=== PATIENT | male | born 1950 | race Hispanic/Latino ===

== ENCOUNTER → 2017-05-06 | Outpatient (CLI) | payer OTHER, MEDICARE ==
[~2017-05-06] MED LIST: AMLO10TA2 PO; ASPI-1012 PO; ESOM20CA31 PO; ESOM40CA54 PO; GLIP1TAB6 PO; GLYB1TAB3 PO; HYDR-309 PO; HYDR25TA PO; INSU100I21 SQ; LEVO200T5 PO; LEVO500T89 PO; LOSA100T29 PO; METO200T PO; TRAM50TA4 PO
== END | disposition home or self-care (01) ==
LOC: OIH 13:01
PROVIDERS: ATTEND Family Medicine
DX: M47.896 Other spondylosis, lumbar region (principal)
CPT/HCPCS: 72100

== ENCOUNTER → 2017-06-19 | Outpatient (CLI) | payer OTHER, MEDICARE ==
[~2017-06-19] MED LIST changes: +REGADENOSON 0.4 MG/5 ML PF SYG IVP SCH
== END | disposition home or self-care (01) ==
LOC: RAH 08:43
PROVIDERS: ATTEND Family Medicine
DX: Z01.818 Encounter for other preprocedural examination (principal); R94.31 Abnormal electrocardiogram [ECG] [EKG]
CPT/HCPCS: 78452; 93017; 96374; A9500 ×2; J2785

== ENCOUNTER 2017-06-25 16:00 | Inpatient (IN) | payer OTHER, MEDICARE ==
[~2017-06-25] VITALS: Ht 177.8 cm; Wt 94.3 kg
[2017-06-25 15:50] VITALS: BP 142/66
[~2017-06-25 16:00] MED LIST changes: -ASPI-1012 PO; -ESOM20CA31 PO; -ESOM40CA54 PO; -GLIP1TAB6 PO; -GLYB1TAB3 PO; -HYDR-309 PO; -HYDR25TA PO; -LEVO500T89 PO; -REGADENOSON 0.4 MG/5 ML PF SYG IVP SCH; -TRAM50TA4 PO
[2017-06-25 16:16] LABS: APPEARANCE,URINE Clear (CLEAR); BILIRUBIN,URINE Negative (NEGATIVE); COLOR,URINE Yellow (YELLOW); GLUCOSE, URINE (UA) Negative (NEGATIVE); KETONES,URINE Trace mg/dL (NEGATIVE); LEUKOCYTE ESTERASE ,URINE Negative (NEGATIVE); NITRATE,URINE Negative (NEGATIVE); OCCULT BLOOD,URINE Negative (NEGATIVE); PROTEIN,URINE POS 1+ (NEGATIVE)
[2017-06-25 16:26] LABS: BACTERIA,URINE Rare /HPF (None Seen); RBC,URINE 0-1 /HPF (0-1); WBC,URINE 0-1 /HPF (0-1)
[2017-06-25 16:27] LABS: HYALINE CASTS, URINE 0-1 /LPF (0-1 /LPF)
[2017-06-25] MEDS ORDERED: GLIP1TAB6 PO (16:38)
[2017-06-25] MEDS ORDERED: HYDR25TA PO (16:38)
[2017-06-25] MEDS ORDERED: ESOM40CA54 PO (16:38)
[2017-06-25 16:57] LABS: BASOPHILS % (AUTO) 0.9 % (0.0-5.0); HEMATOCRIT 39.6 % (42-54); LYMPHOCYTES % (AUTO) 24.5 % (21.0-51.0); MEAN CORPUSCULAR HEMOGLOBIN 30.4 pg (27.0-33.0); MEAN CORPUSCULAR VOLUME 86.9 fL (79-99); MONOCYTES % (AUTO) 7.8 % (3.0-13.0); NEUTROPHILS % (AUTO) 64.8 % (40.0-77.0); NUCLEATED RED BLOOD CELLS 0.1 % (0.0-0.19); PLATELET COUNT (AUTO) 463 K/uL (130-400); RED BLOOD CELL COUNT(AUTO) 4.55 MIL/uL (4.50-6.20); RED CELL DISTRIBUTION WIDTH 15.2 % (11.0-15.5); WHITE BLOOD COUNT (AUTO) 11.1 K/uL (4.8-10.8)
[2017-06-26] VITALS (27 sets, daily range): BP systolic 120–167; BP diastolic 53–91
[2017-06-26] MEDS ORDERED: SODIUM CHLORIDE 0.9% 1000ML 1,000 ML IV ONE (07:14)
[2017-06-26] MEDS ORDERED: WATER FOR INJECTION,STERILE 20 ML VIAL IJ ONE (08:00)
[2017-06-26] MEDS ORDERED: ONDANSETRON HCL 4 MG/2 ML VIAL ONE (08:28)
[2017-06-26] MEDS ORDERED: PROPOFOL 10 MG/ML 20ML VIAL IV ONE (08:28)
[2017-06-26] MEDS ORDERED: GLYCOPYRROLATE 0.2 MG/ML 5 ML VIAL ONE ×2 (08:28→10:43)
[2017-06-26] MEDS ORDERED: LIDOCAINE PF 2% 5ML ABBOJECT ONE (08:28)
[2017-06-26] MEDS ORDERED: MIDAZOLAM HCL 1 MG/ML 2ML VIAL ONE (08:28)
[2017-06-26] MEDS ORDERED: DEXAMETHASONE SOD PHOSPHATE 10MG/ML 1ML VIAL ONE (08:28)
[2017-06-26] MEDS ORDERED: FENTANYL CITRATE PF 50 MCG/1 ML 2ML VIAL ONE ×3 (08:29→10:44)
[2017-06-26] MEDS ORDERED: ROPIVACAINE 0.5% 5MG/ML 30ML IJ ONE (08:31)
[2017-06-26] MEDS ORDERED: EPINEPHRINE 1 MG/ML AMPULE ONE (08:39)
[2017-06-26] MEDS ORDERED: CEFAZOLIN SODIUM 1 GM VIAL ONE (08:39)
[2017-06-26] MEDS ORDERED: TRANEXAMIC ACID 1000MG/10ML IV ONE (08:39)
[2017-06-26] MEDS ORDERED: BUPIVACAINE/PF 0.25% 30ML VIAL IJ ONE (08:39)
[2017-06-26] MEDS: CEFAZOLIN SODIUM 1 GM VIAL IVP ONE ×2 (08:40→08:49)
[2017-06-26] MEDS ORDERED: EPHEDRINE SULFATE 50 MG/ML AMPULE ONE (09:01)
[2017-06-26] MEDS ORDERED: NEOSTIGMINE METHYLSULFATE 1MG/ML IV ONE (10:43)
[2017-06-26] MEDS ORDERED: TEMAZEPAM 15 MG CAPSULE PO PRN (11:00)
[2017-06-26] MEDS ORDERED: ACETAMINOPHEN EXTRA STRENGTH 500 MG TABLET PO PRN (11:00)
[2017-06-26] MEDS ORDERED: POTASSIUM CHLORIDE 20MEQ/100ML 100 ML IV PRN (11:00)
[2017-06-26] MEDS ORDERED: DiphenhydrAMINE HCL 50 MG/ML VIAL IVP PRN (11:00)
[2017-06-26] MEDS ORDERED: POTASSIUM CHLORIDE 10% ELIXIR 20 MEQ/15 ML UDCUP PO PRN (11:00)
[2017-06-26] MEDS ORDERED: TRAMADOL HCL 50 MG TABLET PO PRN (11:00)
[2017-06-26] MEDS ORDERED: FERROUS FUMARATE 324 MG TABLET PO PRN (11:00)
[2017-06-26] MEDS ORDERED: CALCIUM CARBONATE 500 MG TABLET PO PRN (11:00)
[2017-06-26] MEDS ORDERED: POTASSIUM CHLORIDE 20 MEQ ERTAB PO PRN (11:00)
[2017-06-26] MEDS ORDERED: LIDOCAINE HCL-MPF 1% 2ML VIAL IVP PRN (11:00)
[2017-06-26] MEDS ORDERED: OXYCODONE HCL 5 MG TAB PO PRN (11:00)
[2017-06-26] MEDS ORDERED: ONDANSETRON HCL 4 MG/2 ML VIAL IVP PRN (11:00)
[2017-06-26] MEDS ORDERED: MEPERIDINE-PF 25 MG/ML SYG ONE ×2 (11:37→11:49)
[2017-06-26] MEDS: OXYCODONE HCL 5 MG TAB PO PRN ×3 (12:38→21:16)
[2017-06-26] MEDS: ACETAMINOPHEN EXTRA STRENGTH 500 MG TABLET PO SCH ×2 (12:39→18:57)
[2017-06-26] MEDS: INSULIN HUMULIN R 100 UNIT/ML 3ML SQ SCH ×3 (12:48→20:35)
[2017-06-26] MEDS: SODIUM CHLORIDE 0.9% 1000ML 1,000 ML IV SCH ×2 (12:49→20:31)
[2017-06-26] MEDS ORDERED: CEFAZOLIN 2GM / 50 ML 50 ML IV SCH (16:00)
[2017-06-26] MEDS: CEFAZOLIN SODIUM 1 GM VIAL IVP SCH ×2 (16:03→23:28)
[2017-06-26] MEDS: ASPIRIN 325 MG TABLET PO SCH (20:31)
[2017-06-26] MEDS: CELECOXIB 200 MG CAP PO SCH (20:32)
[2017-06-26] MEDS: GLIPIZIDE 5 MG TABLET PO SCH (20:32)
[2017-06-26] MEDS: PREGABALIN 25 MG CAP PO SCH (20:32)
[2017-06-26] MEDS: METFORMIN HCL 500 MG TABLET PO SCH (20:32)
[2017-06-26] MEDS: METOPROLOL TARTRATE 50 MG TAB PO SCH (20:34)
[2017-06-27] MEDS: ACETAMINOPHEN EXTRA STRENGTH 500 MG TABLET PO SCH ×3 (03:18→19:54)
[2017-06-27] MEDS: SODIUM CHLORIDE 0.9% 1000ML 1,000 ML IV SCH (04:39)
[2017-06-27] MEDS: PANTOPRAZOLE SODIUM 40 MG TABLET.DR PO SCH (04:44)
[2017-06-27] MEDS ORDERED: LEVOTHYROXINE 100 MCG TABLET ONE (04:45)
[2017-06-27] MEDS: LEVOTHYROXINE 100 MCG TABLET PO SCH (04:46)
[2017-06-27 04:54] VITALS: BP 135/64
[2017-06-27 05:48] LABS: BASOPHILS % (AUTO) 0.5 % (0.0-5.0); EOSINOPHILS % (AUTO) 0.6 % (0.0-8.0); HEMATOCRIT 34.3 % (42-54); LYMPHOCYTES % (AUTO) 15.9 % (21.0-51.0); MEAN CORPUSCULAR HEMOGLOBIN 31.1 pg (27.0-33.0); MEAN CORPUSCULAR HGB CONC 35.6 g/dL (32.0-36.0); MEAN CORPUSCULAR VOLUME 87.4 fL (79-99); MONOCYTES % (AUTO) 10.9 % (3.0-13.0); NEUTROPHILS % (AUTO) 72.1 % (40.0-77.0); PLATELET COUNT (AUTO) 416 K/uL (130-400); RED BLOOD CELL COUNT(AUTO) 3.93 MIL/uL (4.50-6.20); RED CELL DISTRIBUTION WIDTH 15.5 % (11.0-15.5)
[2017-06-27] MEDS: INSULIN HUMULIN R 100 UNIT/ML 3ML SQ SCH ×4 (05:54→21:00)
[2017-06-27 06:03] LABS: ALBUMIN 3.1 g/dL (3.5-5.0); BILIRUBIN,TOTAL 4.8 mg/dL (0.2-1.0); CREATININE 1.5 mg/dL (0.5-1.5); TOTAL PROTEIN, SERUM 6.4 g/dL (6.0-8.3)
[2017-06-27 08:22] VITALS: BP 119/54
[2017-06-27] MEDS: HYDROCHLOROTHIAZIDE 25 MG TABLET PO SCH (09:03)
[2017-06-27] MEDS: LOSARTAN 100 MG TABLET PO SCH (09:03)
[2017-06-27] MEDS: CELECOXIB 200 MG CAP PO SCH ×2 (09:03→19:55)
[2017-06-27] MEDS: POLYETHYLENE GLYCOL 3350 17 GM POWD.PACK PO SCH (09:06)
[2017-06-27] MEDS: GLIPIZIDE 5 MG TABLET PO SCH ×2 (09:07→19:55)
[2017-06-27] MEDS: PREGABALIN 25 MG CAP PO SCH ×2 (09:07→19:55)
[2017-06-27] MEDS: TAMSULOSIN HCL 0.4 MG CAP.ER.24H PO SCH (09:07)
[2017-06-27] MEDS: METFORMIN HCL 500 MG TABLET PO SCH ×2 (09:08→19:55)
[2017-06-27] MEDS: AMLODIPINE BESYLATE 5 MG TAB PO SCH (09:08)
[2017-06-27] MEDS: ASPIRIN 325 MG TABLET PO SCH ×2 (09:08→19:55)
[2017-06-27] MEDS: METOPROLOL TARTRATE 50 MG TAB PO SCH ×2 (09:08→19:55)
[2017-06-27] MEDS: OXYCODONE HCL 5 MG TAB PO PRN (09:10)
[2017-06-27 11:38] VITALS: BP 139/59
[2017-06-27] MEDS ORDERED: INSULIN GLARGINE 100 UNITS/ML 10 ML VIAL SQ SCH (14:00)
[2017-06-27 16:15] VITALS: BP 137/64
[2017-06-27] MEDS ORDERED: ASPI-1012 PO (18:11)
[2017-06-27] MEDS ORDERED: HYDR-309 PO (18:11)
[2017-06-27 23:00] VITALS: BP 125/57
[2017-06-28 03:00] VITALS: BP 152/60
[2017-06-28] MEDS: ACETAMINOPHEN EXTRA STRENGTH 500 MG TABLET PO SCH (03:32)
[2017-06-28] MEDS: LEVOTHYROXINE 100 MCG TABLET PO SCH (05:22)
[2017-06-28 05:30] LABS: BASOPHILS % (AUTO) 0.8 % (0.0-5.0); EOSINOPHILS % (AUTO) 2.6 % (0.0-8.0); HEMATOCRIT 31.3 % (42-54); LYMPHOCYTES % (AUTO) 16.1 % (21.0-51.0); MEAN CORPUSCULAR HEMOGLOBIN 30.7 pg (27.0-33.0); MEAN CORPUSCULAR HGB CONC 34.9 g/dL (32.0-36.0); MEAN CORPUSCULAR VOLUME 88.1 fL (79-99); MONOCYTES % (AUTO) 11.8 % (3.0-13.0); NEUTROPHILS % (AUTO) 68.7 % (40.0-77.0); PLATELET COUNT (AUTO) 355 K/uL (130-400); RED BLOOD CELL COUNT(AUTO) 3.55 MIL/uL (4.50-6.20); RED CELL DISTRIBUTION WIDTH 15.5 % (11.0-15.5); WHITE BLOOD COUNT (AUTO) 9.9 K/uL (4.8-10.8)
[2017-06-28 06:04] LABS: ALBUMIN 2.9 g/dL (3.5-5.0); BILIRUBIN,TOTAL 3.2 mg/dL (0.2-1.0); CREATININE 2.3 mg/dL (0.5-1.5); POTASSIUM 4.2 mmol/L (3.5-5.1); TOTAL PROTEIN, SERUM 6.2 g/dL (6.0-8.3)
[2017-06-28] MEDS: INSULIN HUMULIN R 100 UNIT/ML 3ML SQ SCH (06:10)
[2017-06-28 07:48] VITALS: BP 113/48
[2017-06-28] MEDS: PREGABALIN 25 MG CAP PO SCH (08:01)
[2017-06-28] MEDS: TAMSULOSIN HCL 0.4 MG CAP.ER.24H PO SCH (08:01)
[2017-06-28] MEDS: LOSARTAN 100 MG TABLET PO SCH (08:01)
[2017-06-28] MEDS: ASPIRIN 325 MG TABLET PO SCH (08:01)
[2017-06-28] MEDS: CELECOXIB 200 MG CAP PO SCH (08:02)
[2017-06-28] MEDS: METOPROLOL TARTRATE 50 MG TAB PO SCH (08:02)
[2017-06-28] MEDS: AMLODIPINE BESYLATE 5 MG TAB PO SCH (08:02)
[2017-06-28] MEDS: GLIPIZIDE 5 MG TABLET PO SCH (08:02)
[2017-06-28] MEDS: HYDROCHLOROTHIAZIDE 25 MG TABLET PO SCH (08:02)
[2017-06-28] MEDS: POLYETHYLENE GLYCOL 3350 17 GM POWD.PACK PO SCH (08:02)
[2017-06-28] MEDS: METFORMIN HCL 500 MG TABLET PO SCH (08:02)
[2017-06-28] MEDS: PANTOPRAZOLE SODIUM 40 MG TABLET.DR PO SCH (08:03)
[2017-06-28] MEDS: OXYCODONE HCL 5 MG TAB PO PRN (08:03)
[2017-06-29] MEDS ORDERED: BISACODYL 10 MG SUPP.RECT RC PRN (11:00)
== END 2017-06-28 08:33 | DRG 470 ==
LOC: EDSTATUS 16:00 → DAHIP 06-26 06:05 → 4AH 06-26 11:31
PROVIDERS: ADMIT Orthopaedic Surgery; ATTEND Orthopaedic Surgery
PROC: 0SRD0J9 Replacement of Left Knee Joint with Synthetic Substitute, Cemented, Open Approach (ICD-10-PCS; principal; 2017-06-26 08:25)
DX: M17.12 Unilateral primary osteoarthritis, left knee (principal); E11.22 Type 2 diabetes mellitus with diabetic chronic kidney disease; E78.5 Hyperlipidemia, unspecified; N18.2 Chronic kidney disease, stage 2 (mild); G89.29 Other chronic pain; Z83.3 Family history of diabetes mellitus; Z82.49 Family history of ischemic heart disease and other diseases of the circulatory system
CPT/HCPCS: 36415; 80053; 81001; 82948; 85025; 88305; 88311; A4218; J0171; J0690; J1100; J1815; J2001; J2175; J2250; J2405; J2704; J2710; J2795; J3010; J3490; J7030

== ENCOUNTER → 2018-01-09 | Outpatient (CLI) | payer OTHER, MEDICARE ==
[~2018-01-09] MED LIST changes: -AMLO10TA2 PO; +AMLO10TA6 PO; +ASPI-1012 PO; +ESOM40CA54 PO; +GLIP1TAB6 PO; +HYDR-4457 PO; +HYDR25TA PO; +LOSA100T20 PO; -LOSA100T29 PO
== END | disposition home or self-care (01) ==
LOC: RAH 12:24
PROVIDERS: ATTEND Family Medicine
DX: E11.51 Type 2 diabetes mellitus with diabetic peripheral angiopathy without gangrene (principal); I70.90 Unspecified atherosclerosis; Z72.89 Other problems related to lifestyle
CPT/HCPCS: 93925

== ENCOUNTER → 2019-04-02 | Outpatient (CLI) | payer OTHER, MEDICARE ==
[~2019-04-02] MED LIST changes: -AMLO10TA6 PO; +AMLO10TA7 PO; -LOSA100T20 PO; +LOSA100T58 PO
== END | disposition home or self-care (01) ==
LOC: RAH 09:29
PROVIDERS: ATTEND Family Medicine
DX: K76.0 Fatty (change of) liver, not elsewhere classified (principal); N28.1 Cyst of kidney, acquired; F17.200 Nicotine dependence, unspecified, uncomplicated
CPT/HCPCS: 76700

== ENCOUNTER 2019-05-30 21:20 | Inpatient (IN) | payer OTHER, MEDICARE ==
[~2019-05-30] VITALS: Ht 177.8 cm; Wt 84.5 kg
[~2019-05-30 21:20] MED LIST changes: +AMLO-258 PO; -AMLO10TA7 PO
[2019-05-30 21:38] LABS: BASOPHILS % (AUTO) 1.1 % (0.0-5.0); EOSINOPHILS % (AUTO) 1.6 % (0.0-8.0); HEMATOCRIT 43.5 % (42-54); LYMPHOCYTES % (AUTO) 18.2 % (21.0-51.0); MEAN CORPUSCULAR HEMOGLOBIN 29.8 pg (27.0-33.0); MEAN CORPUSCULAR HGB CONC 34.7 g/dL (32.0-36.0); MEAN CORPUSCULAR VOLUME 85.8 fL (79-99); MONOCYTES % (AUTO) 6.9 % (3.0-13.0); NEUTROPHILS % (AUTO) 71.4 % (40.0-77.0); PLATELET COUNT (AUTO) 472 K/uL (130-400); RED BLOOD CELL COUNT(AUTO) 5.07 MIL/uL (4.50-6.20); RED CELL DISTRIBUTION WIDTH 13.5 % (11.0-15.5); WHITE BLOOD COUNT (AUTO) 11.4 K/uL (4.8-10.8)
[2019-05-30 21:50] LABS: CREATININE 1.3 mg/dL (0.5-1.5); POTASSIUM 4.1 mmol/L (3.5-5.1)
[2019-05-30 21:52] LABS: INR 0.93 (0.85-1.15); PARTIAL THROMBOPLASTIN TIME 28.9 SEC (26.3-35.5); PROTHROMBIN TIME 10.1 SEC (9.6-11.6)
[2019-05-30 21:56] LABS: ALBUMIN 3.8 g/dL (3.5-5.0); BILIRUBIN,TOTAL 0.5 mg/dL (0.2-1.0); TOTAL PROTEIN, SERUM 7.5 g/dL (6.0-8.3)
[2019-05-30] MEDS ORDERED: TETANUS/DIPHTHERIA TOXOID [ADULT] 0.5 ML VIAL IM ONE (22:38)
[2019-05-30 23:09] LABS: APPEARANCE,URINE Clear (CLEAR); BILIRUBIN,URINE Negative (NEGATIVE); COLOR,URINE Yellow (YELLOW); GLUCOSE, URINE (UA) Negative (NEGATIVE); KETONES,URINE Negative (NEGATIVE); LEUKOCYTE ESTERASE ,URINE Negative (NEGATIVE); NITRATE,URINE Negative (NEGATIVE); OCCULT BLOOD,URINE Negative (NEGATIVE); PROTEIN,URINE POS 2+ mg/dL (NEGATIVE)
[2019-05-30 23:16] LABS: AMPHET/METH SCREEN,URINE NEGATIVE (NEGATIVE); BARBITURATE SCREEN, URINE NEGATIVE (NEGATIVE); BENZODIAZEPINES SCREEN,URINE NEGATIVE (NEGATIVE); CANNABINOID SCREEN,URINE NEGATIVE (NEGATIVE); COCAINE SCREEN,URINE NEGATIVE (NEGATIVE); OPIATE SCREEN,URINE NEGATIVE (NEGATIVE); PHENCYCLIDINE SCREEN,URINE NEGATIVE (NEGATIVE)
[2019-05-30 23:26] LABS: BACTERIA,URINE None Seen /HPF (None Seen); MUCUS,URINE Few LPF (None Seen); RBC,URINE None Seen /HPF (0-1); SQUAMOUS EPITHELIAL CELL,UR Few /HPF (0-2); WBC,URINE None Seen /HPF (0-1)
[2019-05-30] MEDS ORDERED: ASPIRIN 325 MG TABLET ONE (23:43)
[2019-05-31] VITALS (19 sets, daily range): BP systolic 131–184; BP diastolic 54–82
--- NOTE | 2019-05-31 00:25 | NUR ---
PT ARRIVED AT TELEMETRY ROOM 204 VIA STRETCHER, DENIES ANY CHEST PAIN, HAS MINIMAL RIGHT SIDE FACE DROOPING. STRENGTH IN HIS FEET AND HANDS, FOLLOWS COMMANDS. PT HAS MINIMAL SLURRING OF SPEECH. CALL LIGHT WITHIN REACH. BED TO LOWEST LEVEL.
--- NOTE | 2019-05-31 03:00 | NUR ---
UNABLE TO COMPLETE ADMISSION AT THIS POINT. PT DENIES ANY CHEST PAIN, O2 AT 2L VIA NC 98% NORMAL SINUS RHYTHM. . [id number]
--- NOTE | 2019-05-31 07:05 | NUR ---
GAVE REPORT TO MARIA ELENA REED, I WILL COMPLETE PATIENTS ADMISSION.
--- NOTE | 2019-05-31 07:20 | NUR ---
PT AWAKE AND ALERT, ANSWERING QUESTIONS, PT STATES HE EATS ANY KIND OF FOOD AT HOME AND IS A SMOKER. PT FOLLOWS COMMANDS. PT HAS STRENGTH TO HIS LOWER EXTREMITIES. HAS STRENGTH TO UPPER EXTREMITIES. ASKED PATIENT TO SMILE AND HE HAS MINIMAL DROOPING TO RIGHT SIDE OF FACE. HE BEGAN WITH SLURRED SPEECH AND DIFFICULTY SPEAKING WHEN IMMEDIATELY HE EXPERIENCED A TONIC SEIZURE. I PRESSED CODE BLUE D/T HIS SKIN COLOR BECAME PALLOR AND NOT BREATHING. STAFF ARRIVED TO ASSIST AND AT THIS TIME PATIENT DID NOT HAVE A PULSE, LIPS WERE BLUE. BED TO FLAT POSITION, BOARD PLACED UNDER PATIENTS BACK. KT PCP BEGAN CHEST COMPRESSIONS. SEIZURE LASTED LESS THAN A MINUTE. COMPRESSIONS LASTED LESS THAN A MINUTE. MARIA ELENA REED CHECKED ON HIS HEART RATE WITH MAINTENANCE ASSISTANT AND PATIENT WAS SINUS BLAS 57. CHEST COMPRESSIONS WERE STOPPED. CONTINUED TO MONITOR PATIENT, NEEDED TO HOLD PATIENT DOWN TO PREVENT HIMSELF FROM HARMING HIMSELF D/T DISORIENTED THEN PT FELL ASLEEP AND STARTED TO SNORE. ONCE HE WOKE UP HE WAS UNRESPONSIVE TO OUR COMMANDS AND ATTEMPTING TO REMOVE HIS GOWN AND OUT OF CONTROL, CONTINUED TO HOLD DOWN PATIENT TO PREVENT HIMSELF FROM HARMING HIMSELF. DR LEBLANC HAS BEEN CALLED 4 TIMES, NO ANSWER AND NO CALL BACK. STAFF AT BEDSIDE WITH PATIENT. AALIYAH BAERRIB STIFFENER AND HEEL DIPPER AT BEDSIDE.
[2019-05-31 07:31] LABS: ABG BASE EXCESS -9.2 mmol/L (-2.0-3.0); ABG HCO3 19.1 mmol/L (21.0-28.0); ABG OXYGEN SATURATION 98.1 % (95.0-99.0); ABG PCO2 50 mmHg (35-48)
[2019-05-31] MEDS ORDERED: LORAZEPAM 2 MG/ML 1 ML VIAL ONE (07:45)
[2019-05-31] MEDS ORDERED: SODIUM CHLORIDE 0.9% 1000ML 1,000 ML IV ONE (07:59)
--- NOTE | 2019-05-31 08:05 | NUR ---
SPOKE TO DAUGHTERS MOIZ AND AALIYAH. INFORMED BOTH, OF THEIR FATHERS CONDITION, BOTH DAUGHTERS LIVE IN [place]. MOIZ STATED SHE NOTICED MR MILNER SLURRED SPEECH AND DIFFICULTY SPEAKING ON SATURDAY.
[2019-05-31 08:28] LABS: HEMATOCRIT 44.9 % (42-54); MEAN CORPUSCULAR HEMOGLOBIN 28.9 pg (27.0-33.0); MEAN CORPUSCULAR HGB CONC 33.2 g/dL (32.0-36.0); PLATELET COUNT (AUTO) 456 K/uL (130-400); RED BLOOD CELL COUNT(AUTO) 5.16 MIL/uL (4.50-6.20); RED CELL DISTRIBUTION WIDTH 13.6 % (11.0-15.5); WHITE BLOOD COUNT (AUTO) 14.8 K/uL (4.8-10.8)
[2019-05-31] MEDS ORDERED: ZOSYN 3.375GM+NS 50ML 50 ML IV SCH (08:30)
[2019-05-31 08:35] LABS: CARBON DIOXIDE 22 mmol/L (21-32); CHLORIDE 94 mmol/L (101-111); CREATININE 1.3 mg/dL (0.5-1.5); GLOMERULAR FILTR. RATE CALC 58 mL/min (>60); GLUCOSE,RANDOM 182 mg/dL (70-105); POTASSIUM 4.8 mmol/L (3.5-5.1); SODIUM SERUM 134 mmol/L (136-145); UREA NITROGEN, BLOOD 14 mg/dL (7-18)
[2019-05-31 08:52] LABS: ALANINE AMINOTRANSFERASE 22 U/L (12-78); ALBUMIN 3.9 g/dL (3.5-5.0); ASPARTATE AMINOTRANSFERASE 22 U/L (10-37); BILIRUBIN,TOTAL 0.7 mg/dL (0.2-1.0); CREATINE KINASE, TOTAL 83 U/L (21-232); MYOGLOBIN 183 ng/mL (10-92); T3 UPTAKE 39 % (38-49); T4 (THYROXINE) 15.2 ug/dL (4.7-13.3); THYROID STIMULATING HORMONE 0.18 uIU/mL (0.36-3.74); TOTAL PROTEIN, SERUM 7.2 g/dL (6.0-8.3); TROPONIN I < 0.04 ng/mL (0.00-0.06)
[2019-05-31] MEDS ORDERED: ASPIRIN 325MG EC TAB 325 MG TABLET.DR PO SCH (09:00)
[2019-05-31] MEDS ORDERED: PANTOPRAZOLE SODIUM 40 MG TABLET.DR PO SCH (09:00)
[2019-05-31] MEDS ORDERED: LEVETIRACETAM 500 MG in SODIUM CHLORIDE 0.9% 100 ML IV SCH (09:15)
[2019-05-31 09:26] LABS: BASOPHILS % (MANUAL) 2 % (0-2); EOSINOPHILS % (MANUAL) 3 % (1-6); LYMPHOCYTES % (MANUAL) 13 % (22-44); MONOCYTES % (MANUAL) 26 % (2-9); PLATELET MORPHOLOGY COMMENT SLIGHT INCREASED; REACTIVE LYMPHOCYTES 4 % (0-0); SEGMENTED NEUTROPHILS % 52 % (40-70)
[2019-05-31 09:34] LABS: ERYTHROCYTE SEDIMENTATION RATE 15 MM/HR (0-20)
--- NOTE | 2019-05-31 09:56 | NUR ---
PT TO ICU, RECEIVED PT. AWAKE, ALERT ORIENTED, VS STABLE, RECEIVED ORDERS FOR MRA, AND NEW ABG'S PT ABLE TO TAKE MEDS WITHOUT SWALLOWING DIFFICULTY
--- NOTE | 2019-05-31 11:00 | NUR ---
CHART REVIEWED. NOT APPROPRIATE TO GET HISTORY DIRECTLY FROM PATIENT OR FAMILY AT THIS TIME Addendum: 05/31/19 at 1645 by LAITH [place] RN CM Amended: Links added.
--- NOTE | 2019-05-31 11:20 | NUR ---
TAKEN TO MRI WITHOUT INCIDENT. VS STABLE. PAIN MED GIVEN
[2019-05-31 11:22] LABS: ABG BASE EXCESS 1.9 mmol/L (-2.0-3.0); ABG HCO3 27.5 mmol/L (21.0-28.0); ABG PCO2 47 mmHg (35-48)
[2019-05-31] MEDS ORDERED: KETOROLAC TROMETHAMINE 30MG/ML ONE (11:30)
[2019-05-31] MEDS ORDERED: COMPOUND IV REFRIGERATED 1 EACH IVSOLN MISC PRN (12:00)
[2019-05-31] MEDS: KETOROLAC TROMETHAMINE 30MG/ML IV SCH ×2 (12:03→12:05)
[2019-05-31] MEDS ORDERED: COMPOUND IV MISC 1 EACH IVSOLN MISC PRN (12:15)
[2019-05-31] MEDS ORDERED: METFORMIN HCL 500 MG TABLET PO SCH (17:00)
[2019-05-31] MEDS ORDERED: GLIPIZIDE 5 MG TABLET PO SCH (17:00)
[2019-06-01] MEDS ORDERED: LEVOTHYROXINE 100 MCG TABLET PO SCH (06:30)
[2019-06-01] MEDS ORDERED: LOSARTAN 100 MG TABLET PO SCH (09:00)
[2019-06-01] MEDS ORDERED: METOPROLOL SUCCINATE 50 MG TAB.SR.24H PO SCH (09:00)
== END 2019-05-31 14:38 | disposition short-term general hospital (02) | DRG 69 ==
LOC: EDH 21:20 → EDHIP 22:54 → 2AH 23:56 → 2BH 05-31 09:45
PROVIDERS: ADMIT Family Medicine; ATTEND Family Medicine
PROC: 3E0234Z Introduction of Serum, Toxoid and Vaccine into Muscle, Percutaneous Approach (ICD-10-PCS; 2019-05-30)
PROC: 5A12012 Performance of Cardiac Output, Single, Manual (ICD-10-PCS; principal; 2019-05-31)
DX: G45.9 Transient cerebral ischemic attack, unspecified (principal); I46.9 Cardiac arrest, cause unspecified; E11.9 Type 2 diabetes mellitus without complications; R56.9 Unspecified convulsions; E78.5 Hyperlipidemia, unspecified; F17.200 Nicotine dependence, unspecified, uncomplicated; I10 Essential (primary) hypertension; E03.9 Hypothyroidism, unspecified; V89.2XXA Person injured in unspecified motor-vehicle accident, traffic, initial encounter; Y93.89 Activity, other specified; Y92.89 Other specified places as the place of occurrence of the external cause; Y99.8 Other external cause status; Z23 Encounter for immunization
CPT/HCPCS: 36415; 36600; 70450; 70544; 70547; 70551; 71045; 72125; 80053; 80305; 81001; 82435; 82550; 82803; 82947; 82948; 83605; 83735; 83874; 84132; 84295; 84436; 84443; 84479; 84481; 84484; 85018; 85025; 85610; 85651; 85730; 86140; 87040; 87088; 90714; 92950; 93005; 93880; G0378; J1885; J1953; J2060; J2543; J7030

== ENCOUNTER → 2019-11-06 | Outpatient (CLI) | payer OTHER, MEDICARE ==
[~2019-11-06] MED LIST changes: -AMLO-258 PO; +AMLO10TA7 PO; +IOHEXOL-350 75 ML VIAL IV ONE
== END | disposition home or self-care (01) ==
LOC: RAH 08:38
PROVIDERS: ATTEND Family Medicine
DX: N28.1 Cyst of kidney, acquired (principal); K57.30 Diverticulosis of large intestine without perforation or abscess without bleeding; J98.11 Atelectasis; Z90.49 Acquired absence of other specified parts of digestive tract
CPT/HCPCS: 74160; Q9967

== ENCOUNTER → 2019-12-18 | Outpatient (CLI) | payer OTHER, MEDICARE ==
[~2019-12-18] MED LIST changes: +AMLO-258 PO; -AMLO10TA7 PO; -IOHEXOL-350 75 ML VIAL IV ONE
== END | disposition home or self-care (01) ==
LOC: SHCH 14:12
PROVIDERS: ATTEND Internal Medicine Cardiovascular Disease
DX: I51.7 Cardiomegaly (principal); G45.9 Transient cerebral ischemic attack, unspecified
CPT/HCPCS: 93306; 93356